=== PATIENT | male | born 1945 | race African-American/Black ===

== ENCOUNTER 2020-09-30 20:20 | Emergency (ER) | payer OTHER ==
[~2020-09-30] VITALS: Ht 177.8 cm; Wt 73.0 kg
== END 2020-09-30 20:37 | disposition expired ==
LOC: ER 20:20 → EDBD 20:20 → ER 20:37
DX: I46.9 Cardiac arrest, cause unspecified (principal); J45.909 Unspecified asthma, uncomplicated; I10 Essential (primary) hypertension
CPT/HCPCS: 31500; 82962; 92950; 99285